=== PATIENT | male | born 1955 | race Caucasian/White ===

== ENCOUNTER 2020-05-19 16:42 | Emergency (ER) | payer BC, SELFPAY ==
[2020-05-19] VITALS (26 sets, daily range): BP systolic 142–165; BP diastolic 71–127; PULSE 48–65; RESP 12–24; TEMP 36.3–37.2; O2SAT 94–98
--- NOTE | 2020-05-19 16:45 | RT.EKG_ITS ---
APPROVED REPORT Exam: Resting ECG Patient Location: E HR:66 bpm ECG Measurements Heart Rate 66 AXIS NH 146 P 2 QRSd 86 QRS 5 QT 417 T 31 QTc 438 Conclusion Sinus rhythm...normal P axis, V-rate 60- 99 I have reviewed and interpreted ECG and agree with software generated interpretation.
--- NOTE | 2020-05-19 16:52 | W.ED.GENAD ---
Discharge Plan Disposition Patient Disposition: HOME Condition: Stable Discharge Details Clinical Impression: Atypical chest pain, Left arm pain Primary Care Provider: Unknown,Unknown ED Provider: Ulises Chua Home Meds and New Rx's Prescriptions: Continued lovastatin 40 mg Tablet 40 mg PO DAILY RF: 0 aspirin 81 mg Tablet,Delayed Release (Dr/Ec) 81 mg PO HS RF: 0 Discharge Instructions Instructions: Chest Pain (ED) Additional Instructions: Alternate tylenol and motrin as needed and directed for pain. You have been scheduled for an outpatient stress test. You will receive a call from radiology regarding scheduling test. You have been placed on care management list to arrange for a follow-up appointment with the primary care doctor for reevaluation and recheck of your blood pressure. Return immediately to the emergency department if you develop any worsening or new concerning symptoms. Below is a printout of your lab work. Laboratory Tests Range/Units 05/19/20 05/19/20 05/19/20 17:09 17:09 17:09 WBC (4.4-10.8) 10^3/uL 6.58 RBC (4.36-5.78) 10^6/uL 5.83 H Hgb (13.5-17.5) g/dL 17.8 H Hct (40.0-50.0) % 51.9 H MCV (80-95) fL 89.0 MCH (27.0-33.0) pg 30.5 MCHC (32.0-36.0) % 34.3 RDW (11.8-14.1) % 11.3 L Plt Count (130-400) 10^3/uL 190 MPV (8.0-11.0) fL 10.8 Immature Gran % 0.5 Neutrophils % 59.6 Lymphocytes % 29.9 Monocytes % 7.4 Eosinophils % 2.0 Basophils % 0.6 Nucleated RBC % % 0 Absolute Neutrophils (1.2-6.7) 10^3/uL 3.92 Absolute Lymphocytes (1.2-3.4) 10^3/uL 1.97 Absolute Monocytes (0.1-0.8) 10^3/uL 0.49 Absolute Eosinophils (0.0-0.7) 10^3/uL 0.13 Absolute Basophils (0.0-0.2) 10^3/uL 0.04 PT (9.3-11.0) sec 10.1 INR (0.9-1.1) 1.0 APTT (21.0-27.5) sec 25.6 Sodium (136-145) mmol/L 137 Potassium (3.5-5.1) mmol/L 3.9 Chloride (98-107) mmol/L 102 Carbon Dioxide (21.0-32.0) mmol/L 29.4 Anion Gap (3-11) mmol/L 5.6 BUN (7-18) mg/dL 17 Creatinine (0.70-1.30) mg/dL 1.1 Estimated GFR/1.73 m2 (mL/min/1.73m2) >= 60.00 Glucose (74-106) mg/dL 100 Calcium (8.5-10.1) mg/dL 9.4 Magnesium (1.8-2.4) mg/dL 2.0 Total Bilirubin (0.2-1.0) mg/dL 0.9 AST (15-37) U/L 18 ALT (16-63) U/L 41 Alkaline Phosphatase (46-116) U/L 73 Troponin I (<0.06) ng/mL < 0.05 Total Protein (6.4-8.2) g/dL 7.9 Albumin (3.4-5.0) g/dL 4.4 Discharge Data Discharge Date/Time-TO BE ENTERED AT DEPARTURE: 05/19/20 21:15 Discharge Physician: Mary Ann Weller Medical Decision Making <Mary Ann Weller DO - Last Filed: 05/20/20 17:58> 64-year-old male with a history of hyperlipidemia presents for left arm and chest pain since yesterday. Left arm pain appears reproducible. Left chest pain occurs only with deep breaths. EKG notes a rate of 66, sinus with no acute ST-T wave ischemic findings. Blood pressure mildly hypertensive, remainder vitals within normal limits. Patient appears comfortable and nontender. Differential diagnosis includes musculoskeletal pain, ACS, PE. History and presentation not consistent with dissection. Will obtain screening labs, CT chest and give Toradol and reassess. Labs and imaging reviewed and unremarkable. Repeat EKG from the inadvertently done 40 minutes earlier than ordered. Repeat EKG notes a heart rate of 52, sinus bradycardia, no acute ST-T wave ischemic findings. Patient reassessed and he feels much better, L arm pain now 2/10. He denies any chest pain while in the emergency department. We will plan for repeat troponin and if negative will plan for discharge home. Patient is here until June and he is moving to [place]. Will order an outpatient stress test and follow-up with the primary care doctor in the area for reassessment the next 1 to 2-week. Blood pressure remains mildly elevated. We will hold on starting antihypertensives at this time and will have a primary care doctor reassess his BP. Case endorsed to Dr. Chua to follow-up on repeat troponin and final disposition. If troponin negative, plan for discharge home. Usual and customary return precautions given prior to discharge. Medical Records Medical records reviewed: Yes I reviewed the patient's medical records. Imaging Data Radiologic Study: Radiologist's impression: CT Angiography Chest With Contrast Exam date and time: 05/19/2020 5:21 PM Age: 64 years old Clinical indication: Pleuordynia; Patient HX: Left chest pleuritic pain, R/O pe TECHNIQUE: Imaging protocol: Computed tomographic angiography of the chest with contrast. 3D rendering (Not supervised by radiologist): MIP and/or 3D reconstructed images were created by the technologist. Radiation optimization: All CT scans at this facility use at least one of these dose optimization techniques: automated exposure control; mA and/or kV adjustment per patient size (includes targeted exams where dose is matched to clinical indication); or iterative reconstruction. Contrast material: OMNI-PAQUE 350; Contrast volume: 100 ml; Contrast route: INTRAVENOUS (IV); COMPARISON: No relevant prior studies available. FINDINGS: Pulmonary arteries: No filling defects within the central pulmonary arteries are identified to suggest pulmonary embolism. Aorta: Unremarkable. No aortic aneurysm. No aortic dissection. Lungs: There are multiple regions of mild subsegmental atelectasis at the lung bases. Lungs otherwise clear. The central airways are patent. There is no bronchiectasis or bronchiolectasis. Pleural spaces: There is no pneumothorax. Heart: There is no bowing of the interventricular septum or disproportionate enlargement of the right heart. There is no reflux of contrast into the IVC or hepatic veins. There is mild cardiomegaly. There is no pericardial effusion. Lymph nodes: Unremarkable. No enlarged lymph nodes. Kidneys and ureters: There is a 3.8 cm left renal simple cyst as well as 2 much smaller right renal cysts. Bones/joints: No acute displaced fractures are identified. Soft tissues: Unremarkable. IMPRESSION: 1. No pulmonary embolism identified. 2. Mild cardiomegaly. 3. No pneumothorax or rib fractures identified. Lab Data Lab results reviewed: Yes I reviewed the patient's lab results. Labs: Laboratory Tests Range/Units 05/19/20 05/19/20 05/19/20 17:09 17:09 17:09 WBC (4.4-10.8) 10^3/uL 6.58 RBC (4.36-5.78) 10^6/uL 5.83 H Hgb (13.5-17.5) g/dL 17.8 H Hct (40.0-50.0) % 51.9 H MCV (80-95) fL 89.0 MCH (27.0-33.0) pg 30.5 MCHC (32.0-36.0) % 34.3 RDW (11.8-14.1) % 11.3 L Plt Count (130-400) 10^3/uL 190 MPV (8.0-11.0) fL 10.8 Immature Gran % 0.5 Neutrophils % 59.6 Lymphocytes % 29.9 Monocytes % 7.4 Eosinophils % 2.0 Basophils % 0.6 Nucleated RBC % % 0 Absolute Neutrophils (1.2-6.7) 10^3/uL 3.92 Absolute Lymphocytes (1.2-3.4) 10^3/uL 1.97 Absolute Monocytes (0.1-0.8) 10^3/uL 0.49 Absolute Eosinophils (0.0-0.7) 10^3/uL 0.13 Absolute Basophils (0.0-0.2) 10^3/uL 0.04 PT (9.3-11.0) sec 10.1 INR (0.9-1.1) 1.0 APTT (21.0-27.5) sec 25.6 Sodium (136-145) mmol/L 137 Potassium (3.5-5.1) mmol/L 3.9 Chloride (98-107) mmol/L 102 Carbon Dioxide (21.0-32.0) mmol/L 29.4 Anion Gap (3-11) mmol/L 5.6 BUN (7-18) mg/dL 17 Creatinine (0.70-1.30) mg/dL 1.1 Estimated GFR/1.73 m2 (mL/min/1.73m2) >= 60.00 Glucose (74-106) mg/dL 100 Calcium (8.5-10.1) mg/dL 9.4 Magnesium (1.8-2.4) mg/dL 2.0 Total Bilirubin (0.2-1.0) mg/dL 0.9 AST (15-37) U/L 18 ALT (16-63) U/L 41 Alkaline Phosphatase (46-116) U/L 73 Troponin I (<0.06) ng/mL < 0.05 Total Protein (6.4-8.2) g/dL 7.9 Albumin (3.4-5.0) g/dL 4.4 ECG Data Attestation: I personally reviewed and interpreted this ECG (s) as follows: Interpretation: #1 -- Rate of 66, sinus, no acute ST elevation or depression. CO 146. QRS 86. QTc 438. #2 -- Rate of 52, sinus, no acute ST ovation or depression. CO 157. QRS 89. QTc 426. <Ulises Chua DO - Last Filed: 05/19/20 20:58> Patient was signed out to me by my colleague Dr. Mary Ann Weller. Please refer to her HPI, physical exam, assessment and plan. At time of signout we are pending repeat troponin. Repeat troponin has returned normal. EKG unremarkable as documented by Dr. Weller. Patient feels well, is requesting to go home. Reassessment demonstrates a well-appearing male, no signs of acute distress or chest pain. Symptoms at this time are clinically inconsistent with STEMI or ACS. Patient will be discharged home, recommend outpatient scheduling of stress test which was discussed with him. Patient will be given documents for home review with his PCP in [place]. I have extensively reviewed the treatment plan and discharge instructions with the patient. I have addressed all patient concerns at this time. The patient was made aware of what symptoms to monitor for that would warrant a return to the emergency department. Discussed the plan with the patient, they demonstrate verbal understanding and agreement with our assessment and plan at this time. The documentation in this chart was dictated using [employer] dictation software. Please excuse any dictation errors. HPI <Mary Ann Weller DO - Last Filed: 05/20/20 17:58> General Mode of arrival: ambulatory. Date/Time Provider Initiated Documentation: 05/19/20 16:50. Limitations to Documentation: no limitations. Information obtained by: patient. HPI Narrative: Patient is a 64-year-old male with a history of hyperlipidemia who presents for left arm and chest pain since yesterday. Patient states he was casually walking in a grocery store yesterday when he noted left posterior upper arm pain. He states the pain was intermittent, sharp and sometimes worse with lifting his arm up or certain positions of his arm. He states sometime yesterday he noticed intermittent left-sided chest pain that occurred only with deep breaths. He denies any chest pain at present. He denies any fever, cough, shortness of breath, nausea, vomiting, dizziness or known injury. Patient states his pain at its worst is 6 and states his L arm pain is currently 6/10. He has not taken any medication for pain. He denies any recent surgery, recent travel, leg pain or swelling. Related Data Home Medications Medication Instructions Recorded Confirmed aspirin 81 mg PO HS 05/19/20 05/19/20 lovastatin 40 mg PO DAILY 05/19/20 05/19/20 Allergies Allergy/AdvReac Type Severity Reaction Status Date / Time No Known Allergies Allergy Unverified 05/19/20 16:54 Review of Systems <DO Frida Mariee Last Filed: 05/20/20 17:58> All systems reviewed & are unremarkable except as noted in HPI and below Constitutional Constitutional: Reports as per HPI, Denies chills and Denies fever(s) Eyes Eyes: Denies blurry vision ENT Ears, Nose, Mouth, and Throat: Denies dizziness, Denies sore throat and Denies throat swelling Cardiovascular Cardiovascular: Reports chest pain and Denies dyspnea Respiratory Respiratory: Denies cough and Denies dyspnea Gastrointestinal Gastrointestinal: Denies abdominal pain, Denies diarrhea and Denies vomiting Genitourinary Genitourinary: Denies hematuria and Denies dysuria Musculoskeletal Musculoskeletal: Denies back pain and Denies numbness Integumentary/Breasts Skin/Breast: Denies lesions and Denies rash Neurologic Neurologic: Denies dizziness, Denies localized weakness and Denies numbness Allergic/Immunologic Allergic/Immunologic: Denies throat swelling PFSH <Mary Ann Weller DO - Last Filed: 05/20/20 17:58> Medical History (Updated 05/19/20 @ 19:41 by Mary Ann Weller DO) High cholesterol Surgical History (Updated 05/19/20 @ 17:30 by Mary Ann Weller DO) No significant past surgical history Social History Smoking/Tobacco Use Status: Former Tobacco Use Smoking risk assessment performed?: Yes Alcohol Intake: current Alcohol Intake frequency: a few times a week Substance use type: does not use Current gender identity: male Do you feel safe at home: Yes Do you feel safe in your relationship?: Yes Exam <Mary Ann Weller DO - Last Filed: 05/20/20 17:58> Const General: cooperative, healthy appearing and no acute distress HENMT Head: normal to inspection Face and sinus: normal facial exam Eyes General: appearance normal, both eyes and all related structures EOM: EOM intact bilaterally Neck Neck: normal visual inspection and No submandibular swelling Lymphatic: no lymphadenopathy noted Chest Chest: normal inspection of the chest and no tenderness Resp Effort & Inspection: normal respiratory effort and able to speak in complete sentences Auscultation: clear to auscultation bilaterally Cardio Rate: regular rate Rhythm: regular rhythm GI Inspection: normal to inspection Palpation: soft, not firm, not rigid and nontender Auscultation: normal bowel sounds Skin General skin exam: no rashes or lesions noted Neuro General: patient alert, patient awake and patient oriented x3 Cognition: normal cognition Speech: speech normal Motor: muscle tone normal throughout Sensory Exam: no sensory deficits noted Extrem General: normal to inspection, full ROM, capillary refill normal, no calf tenderness bilaterally and no edema Other: Left upper posterior arm minimally tender to palpation and reproducible with flexion and full abduction of left upper extremity. No evidence of cellulitis, trauma or rash. Distal pulses intact. Psych Appearance: grossly normal Mental Status: mental status grossly normal Speech and Movement: speech and movement normal Affect: normal affect Sign Out <Mary Ann Weller DO - Last Filed: 05/20/20 17:58> Sign Out Data: Sign Out Comment: Follow-up on repeat troponin and final disposition. If repeat troponin negative, can discharged home with plan for outpatient stress test and establishing care with a primary care doctor. Last updated by Mary Ann Weller DO at 05/19/20 20:06
--- NOTE | 2020-05-19 17:15 | DI.CT_ITS ---
EXAM: CT CHEST PE CTA CLINICAL HISTORY: L chest pleuritic pain, r/o PE. TECHNIQUE: Imaging Protocol: Axial CT angiography was performed with multi-slice acquisition and mu lti-planar and/or 3D reconstructions. CONTRAST MATERIAL: Intravenous: Omnipaque 350 Contrast volume:100 mL COMPARISON: No exams were available for comparison FINDINGS: Tracheobronchial tree: Patent where visualized. Pulmonary parenchyma: No consolidation or dominant measurable mass. No architectural distortion. Mild dependent atelectasis. Pulmonary Arteries: No evidence of filling defect to suggest pulmonary emboli. Mediastinum and Lucero: No dominant adenopathy or fluid collection. Visualized thyroid gland: Unremarkable. Pleura: No effusion or pneumothorax. Heart: Mild cardiomegaly. Mild coronary artery calcification. No pericardial effusion. Aorta: Thoracic aorta non-dilated. Mild atherosclerosis. No evidence of dissection. Upper abdomen: Bilateral renal cysts. 3 mm right nonobstructing renal stone. Soft tissues: Unremarkable. Bones: Normal. IMPRESSION: 1. No evidence of pulmonary embolism, thoracic aortic dissection or aneurysm. 2. Mild cardiomegaly. 3. No evidence of a pneumothorax or pleural effusion. RADIATION DOSE DELIVERED: 452.49mGy.cm Total DLP DATA REPOSITORY: All CT scans at this facility are submitted to the National Radiology Data Registry (NRDR) Dose Index Registry (DIR) with the [employer] (ACR). RADIATION OPTIMIZATION: All CT scans at this facility use at least one of these dose optimization te chniques: automated exposure control; mA and/or kV adjustment per patient size (includes targeted exa ms where dose is matched to clinical indication); or iterative reconstruction.
[2020-05-19 17:21] LABS: Abs Immature Grans 0.03 10^3/uL (0.0-0.06); Absolute Basophil Count 0.04 10^3/uL (0.0-0.2); Absolute Eosinophil Count 0.13 10^3/uL (0.0-0.7); Absolute Lymphocyte Count 1.97 10^3/uL (1.2-3.4); Absolute Monocyte Count 0.49 10^3/uL (0.1-0.8); Absolute Neutrophil Count 3.92 10^3/uL (1.2-6.7); Basophils % 0.6; HCT 51.9 % (40.0-50.0); HGB 17.8 g/dL (13.5-17.5); Immature Grans % 0.5; Lymphocytes % 29.9; MCH 30.5 pg (27.0-33.0); MCHC 34.3 % (32.0-36.0); MPV 10.8 fL (8.0-11.0); Monocytes % 7.4; Neutrophils % 59.6; Nucleated RBC 0 %; Platelet Count 190 10^3/uL (130-400); RBC 5.83 10^6/uL (4.36-5.78); RDW 11.3 % (11.8-14.1); RDW-SD 36.1 fL; WBC 6.58 10^3/uL (4.4-10.8)
[2020-05-19 17:29] LABS: PTT Activated 25.6 sec (21.0-27.5); Prothrombin Time 10.1 sec (9.3-11.0)
[2020-05-19] MEDS: Ketorolac 30 MG/ML VIAL IVP (17:31)
[2020-05-19] MEDS: Normal Saline 1,000 ML 1000 ML IV (17:31)
[2020-05-19 17:33] LABS: ALT 41 U/L (16-63); AST 18 U/L (15-37); Albumin 4.4 g/dL (3.4-5.0); Alkaline Phosphatase 73 U/L (46-116); Anion Gap 5.6 mmol/L (3-11); BUN 17 mg/dL (7-18); Bilirubin, Total 0.9 mg/dL (0.2-1.0); CO2 29.4 mmol/L (21.0-32.0); CREATININE 1.1 mg/dL (0.70-1.30); Calcium 9.4 mg/dL (8.5-10.1); Chloride 102 mmol/L (98-107); Glucose 100 mg/dL (74-106); Potassium 3.9 mmol/L (3.5-5.1); Sodium 137 mmol/L (136-145); Total Protein 7.9 g/dL (6.4-8.2)
[2020-05-19 17:59] LABS: Troponin I < 0.05 ng/mL (<0.06)
[2020-05-19] MEDS: Omnipaque 350 MG/ML 100 ML BTL IJ (18:07)
[2020-05-19] MEDS: Normal Saline Flush 10 ML SYR IVP (18:08)
[2020-05-19] MEDS: Normal Saline - Diluent 50 ML VIAL IV (18:09)
--- NOTE | 2020-05-19 18:38 | DI.VRAD_ITS ---
PROCEDURE INFORMATION: Exam: CT Angiography Chest With Contrast Exam date and time: 05/19/2020 5:21 PM Age: 64 years old Clinical indication: Pleuordynia; Patient HX: Left chest pleuritic pain, R/O pe TECHNIQUE: Imaging protocol: Computed tomographic angiography of the chest with contrast. 3D rendering (Not supervised by radiologist): MIP and/or 3D reconstructed images were created by the technologist. Radiation optimization: All CT scans at this facility use at least one of these dose optimization techniques: automated exposure control; mA and/or kV adjustment per patient size (includes targeted exams where dose is matched to clinical indication); or iterative reconstruction. Contrast material: OMNI-PAQUE 350; Contrast volume: 100 ml; Contrast route: INTRAVENOUS (IV); COMPARISON: No relevant prior studies available. FINDINGS: Pulmonary arteries: No filling defects within the central pulmonary arteries are identified to suggest pulmonary embolism. Aorta: Unremarkable. No aortic aneurysm. No aortic dissection. Lungs: There are multiple regions of mild subsegmental atelectasis at the lung bases. Lungs otherwise clear. The central airways are patent. There is no bronchiectasis or bronchiolectasis. Pleural spaces: There is no pneumothorax. Heart: There is no bowing of the interventricular septum or disproportionate enlargement of the right heart. There is no reflux of contrast into the IVC or hepatic veins. There is mild cardiomegaly. There is no pericardial effusion. Lymph nodes: Unremarkable. No enlarged lymph nodes. Kidneys and ureters: There is a 3.8 cm left renal simple cyst as well as 2 much smaller right renal cysts. Bones/joints: No acute displaced fractures are identified. Soft tissues: Unremarkable. IMPRESSION: 1. No pulmonary embolism identified. 2. Mild cardiomegaly. 3. No pneumothorax or rib fractures identified. Dictated and Authenticated by: Kodi Burks MD. Ordering:MEDINA Reese MD
--- NOTE | 2020-05-19 18:45 | RT.EKG_ITS ---
APPROVED REPORT Exam: Resting ECG Patient Location: E HR:52 bpm ECG Measurements Heart Rate 52 AXIS TX 157 P 32 QRSd 89 QRS 8 QT 456 T 30 QTc 426 Conclusion Sinus bradycardia...rate< 60 I have reviewed and interpreted ECG and agree with software generated interpretation.
--- NOTE | 2020-05-19 19:52 | NUR.NOTE ---
Nursing Note:REFERAL SENT TO 05/19/20
[2020-05-19 20:48] LABS: Troponin I < 0.05 ng/mL (<0.06)
--- NOTE | 2020-05-20 12:33 | CMPROGNOTE_ITS ---
- If Service Date Differs Date of service: 05/20/20 Time of Service: 12:33 Care Management Progress Note Wilmar is seen in the ED on 05/19/20 for chest pain and left arm pain. At the request of ED provider, CM coordinates a referral to ELMER Hernandez, of [facility], on-call provider, to assist Wilmar in obtaining a follow up appointment and in establishing care with a PCP. Wilmar has BC[employer] for insurance.
== END 2020-05-19 21:15 | disposition home or self-care (01) ==
PROVIDERS: Physician Assistant; Emergency Provider Student in an Organized Health Care Education/Training Program
DX: R07.89 Other chest pain (principal); M79.602 Pain in left arm
CPT/HCPCS: 36415; 71275; 80053; 93005; 96361; 96374; 99285; 83735; 84484; 85025; 85610; 85730; 93010; J1885; J3490

== ENCOUNTER 2020-05-20 12:13 | Outpatient (CLI) | payer BC, SELFPAY ==
[2020-05-21 15:07] LABS: COVID-19 RT-PCR UVMMC Result Negative (Negative)
== END 2020-05-20 12:33 ==
PROVIDERS: Visit Provider Family Medicine
DX: Z01.818 Encounter for other preprocedural examination (principal); Z11.52 Encounter for screening for COVID-19
CPT/HCPCS: U0003